=== PATIENT | male | born 1975 | race Caucasian/White ===

== ENCOUNTER 2019-01-06 12:57 | Emergency (ER) | payer MEDICAID ==
[~2019-01-06] VITALS: Ht 167.6 cm; Wt 74.8 kg
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
[2019-01-06] MEDS ORDERED: TETRACAINE HCL 0.5% OPHT DROP 2 ML BOTTLE ONE (13:39)
[2019-01-06] MEDS ORDERED: FLUORESCEIN SODIUM 1 MG STRIP ONE (13:39)
[2019-01-06] MEDS ORDERED: TETRACAINE HCL 0.5% OPHT DROP 2 ML BOTTLE OP ONE (13:45)
[2019-01-06] MEDS ORDERED: FLUORESCEIN SODIUM 1 MG STRIP OP ONE (13:45)
--- NOTE | 2019-01-06 14:03 | NUR ---
[employer] OFFICERS AT BEDSIDE FOR PT INTERVIEW.
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
--- NOTE | 2019-01-06 15:22 | NUR ---
KUN speaking with Dr. Hooks (marble coper).
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
[2019-01-06] MEDS ORDERED: GENTAMICIN SULFATE OPHT DROP 5 ML BOTTLE ONE (15:42)
[2019-01-06] MEDS ORDERED: GENTAMICIN SULFATE OPHT DROP 5 ML BOTTLE EACHEYE ONE (15:45)
--- NOTE | 2019-01-06 16:07 | NUR ---
Patient discharged to home in stable conditon. Written and verbal after care instructions given. Patient verbalizes understanding of instructions. ALL BELONGINGS W/ PT. PT SELF-AMBULATED W/O DIFFICULTY.
--- NOTE | 2019-01-06 16:07 | NUR ---
PT SEEN TEXTING ON HIS PHONE AND IS ABLE TO READ THE INSTRUCTIONS ON DISCHARGE PAPERWORK.
[2019-01-06 16:09] VITALS: BP 116/76
== END 2019-01-06 16:10 | disposition home or self-care (01) ==
LOC: ER 12:57
DX: S02.32XA Fracture of orbital floor, left side, initial encounter for closed fracture (principal); S05.02XA Injury of conjunctiva and corneal abrasion without foreign body, left eye, initial encounter; Y04.2XXA Assault by strike against or bumped into by another person, initial encounter; Y93.89 Activity, other specified; Y92.89 Other specified places as the place of occurrence of the external cause; Y99.8 Other external cause status
CPT/HCPCS: 70450; 70486; A4663